=== PATIENT | male | born 1970 | race Caucasian/White ===

== ENCOUNTER 2018-04-05 06:37 | Day surgery (SDC) | payer BC ==
[2018-04-05] MEDS ORDERED: LIDOCAINE 1% PF 2 ML VIAL. ID (07:00)
[2018-04-05] MEDS ORDERED: fentaNYL PF VIAL 100 MCG/2 ML VIAL IV (07:00)
[2018-04-05] MEDS ORDERED: PROCHLORPERAZINE 10 MG/2 ML VIAL. IV (07:00)
[2018-04-05] MEDS ORDERED: MORPHINE SULFATE 2 MG/ML DISP.SYRIN. IV (07:00)
[2018-04-05] MEDS ORDERED: ONDANSETRON PF 4 MG/2 ML VIAL. IV (07:00)
[2018-04-05] MEDS: IV RINGERS,LACTATED 1000ML 1,000 ML IV (07:00)
[2018-04-05] MEDS ORDERED: LIDOCAINE 2% PF Vial for OR 5 ML VIAL. (07:20)
[2018-04-05] MEDS ORDERED: ROCURONIUM 50 MG/5 ML VIAL. (07:20)
[2018-04-05] MEDS ORDERED: MIDAZOLAM HCL/PF 2 MG/2 ML VIAL. (07:20)
[2018-04-05] MEDS ORDERED: PROPOFOL 0 ML IV (07:20)
[2018-04-05] MEDS ORDERED: fentaNYL PF VIAL 250 MCG/5 ML VIAL (07:21)
[2018-04-05] MEDS ORDERED: ceFAZolin 2GM PREMIX 2 GM/50 ML BAG IV (08:00)
[2018-04-05] MEDS ORDERED: GLYCOPYRROLATE 1 MG/5 ML VIAL. (08:03)
[2018-04-05] MEDS ORDERED: NEOSTIGMINE METHYLSULFATE 5 MG/5 ML SYRINGE. (08:03)
[2018-04-05] MEDS ORDERED: ONDANSETRON PF 4 MG/2 ML VIAL. (08:03)
[2018-04-05] MEDS ORDERED: DEXAMETHASONE SOD PHOS 20 MG/5 ML VIAL. (08:03)
[2018-04-05] MEDS ORDERED: PROPOFOL 20 ML IV (08:58)
[2018-04-05] MEDS ORDERED: oxyCODONE/APAP 5/325 1 TAB TABLET PO (09:00)
[2018-04-05] MEDS ORDERED: fentaNYL PF VIAL 100 MCG/2 ML VIAL (09:01)
[2018-04-05] MEDS: fentaNYL PF VIAL 100 MCG/2 ML VIAL IV ×2 (09:04→09:24)
[2018-04-05] MEDS: oxyCODONE/APAP 5/325 1 TAB TABLET PO (09:37)
[2018-04-05] MEDS: BUPIVACAINE-EPI 0.25%-1:200000 50 ML VIAL. (11:23)
== END 2018-04-05 10:26 | disposition home or self-care (01) ==
LOC: SURG 06:37
DX: K42.0 Umbilical hernia with obstruction, without gangrene (principal); Z91.041 Radiographic dye allergy status; Z87.891 Personal history of nicotine dependence; Z98.890 Other specified postprocedural states; G80.8 Other cerebral palsy; Z79.899 Other long term (current) drug therapy; Z83.3 Family history of diabetes mellitus
CPT/HCPCS: 49587; 88302; A7015; J0690; J1100; J2001; J2250; J2405; J2704; J2710; J3010; J3490

== ENCOUNTER → 2018-07-18 | Outpatient (CLI) | payer BC ==
[2018-04-05 10:18] VITALS: BP 122/74
[~2018-07-18] MED LIST: CHOL500016 PO; CINN500C2 PO; FLAX10003 PO; GARL500C PO; MULT1TAB52 PO; OMEG1CAP38 PO; OXYC-323 PO
--- NOTE | 2018-07-18 10:59 | KCIC ---
CHEST PA LATERAL dated 07/18/2018 12:00 AM. Comparison: None. Clinical Indication: Cough, CONGESTION Findings: PA and lateral views of the chest were obtained. Heart and mediastinal contours within normal limits. Lungs are clear without focal consolidation. Vascular interstitium within normal limits. No pleural effusion or pneumothorax. Impression: No acute radiographic abnormality. Electronically signed by: Willy Daly MD (07/18/2018 10:56 AM) [id number]
== END | disposition home or self-care (01) ==
LOC: KCIC 10:31
PROVIDERS: ATTEND Nurse Practitioner Family
DX: R09.89 Other specified symptoms and signs involving the circulatory and respiratory systems (principal); Z87.891 Personal history of nicotine dependence
CPT/HCPCS: 71046